=== PATIENT | male | born 1955 | race Two or more races ===

== ENCOUNTER → 2020-07-02 | Outpatient (CLI) | payer OTHER | END | disposition home or self-care (01) | LOC: OFIC 805 12:15 | PROVIDERS: ATTEND Otolaryngology | DX: R13.0 Aphagia (principal); C73 Malignant neoplasm of thyroid gland ==

== ENCOUNTER 2020-07-27 14:28 | Inpatient (IN) | payer OTHER ==
[~2020-07-27] VITALS: Ht 157.5 cm; Wt 74.8 kg
[2020-07-29] MEDS ORDERED: ADULT LOW DOSE81 M1 PO (11:56)
[2020-07-29] MEDS ORDERED: AMLODIPINE-ATO1 EACH PO (11:57)
[2020-07-29] MEDS ORDERED: CRESTOR5 MG PO (11:58)
== END 2020-08-06 11:05 | disposition home or self-care (01) | DRG 627 ==
LOC: SURH 08-05 07:00 → O/R 08-05 09:44 → SURH 08-05 10:00
PROVIDERS: ADMIT Surgery; ATTEND Surgery
PROC: 0GTK0ZZ Resection of Thyroid Gland, Open Approach (ICD-10-PCS; principal; 2020-08-05 07:00)
DX: C73 Malignant neoplasm of thyroid gland (principal); I10 Essential (primary) hypertension